=== PATIENT | female | born 1980 | race Caucasian/White ===

== ENCOUNTER 2019-01-24 22:27 | Observation (INO) ==
[2019-01-25] MEDS ORDERED: Naloxone 0.4 MG/ML INJ IVP PRN (00:20)
[2019-01-25] MEDS ORDERED: Acetaminophen 325 MG TABLET PO PRN (00:20)
[2019-01-25] MEDS: Ringers Solution, Lactated 1,000 ML IVC SCH ×2 (00:50→07:33)
[2019-01-25] MEDS: Ketorolac 30 MG/ML VIAL IVP PRN ×2 (00:50→07:33)
--- NOTE | 2019-01-25 02:09 | Internal Med History&Physical ---
Date of Encounter: 01/25/19 Time of Encounter: 02:08 Internal Medicine - H&P: HPI Chief complaint: groin pain Admitted From: Hospital to Hospital Transfer Plans for Post Hospital Care: Home History of present illness: Sherlyn Daugherty is a 38 year old woman who reports no past medical history that went to [facility] with acute onset left flank and groin pain after waking up from a nap in the afternoon. It was accompanied by nausea and chills. She denied associated dysuria, hematuria and fever. At [facility] her lab work and urine studies were grossly unremarkable however her CT scan showed a 3 mm stone within the left distal ureter at the ureterovesicular junction contributing to mild left hydronephrosis and hydroureter. She was transferred here for further care. Upon arrival here she is seen ambulating in her room without difficulty and offers no complaints. Vitals: Reviewed General: Well-appearing and well-developed woman lying comfortably in bed in no acute distress. Skin: Warm and supple. HEENT: Moist mucous membranes. No conjunctivae pallor. Neck: No lymphadenopathy. No JVD. No carotid bruits. No palpable thyroid. Chest: Normal thoracic expansion. Normal breath sounds. Clear to auscultation. Heart: Normal S1 & S2; rhythmic. No rubs or murmurs. Abdomen: Non-distended, soft and exquisite tenderness appreciated upon palpation of the left inguinal/groin area. Extremities: No clubbing, cyanosis or edema. No calf tenderness. Normal distal pulses. Neurological: Awake, alert and oriented to person, place and time. No focal deficits. Psych: Affect appropriate. Assessment/Plan 1. Left kidney stone: The location of the stone on CT correlates with the area of her pain. Although small and with the probability of passing on its own given the recent onset of symptoms, it is already causing signs of obstruction and therefore she will benefit from urology consultation. Will get routine labs and UA. 2. Tobacco use: Smoking cessation advised. Resources made available. 3. DVT prophylaxis: Antiembolic stockings ordered. Past Med Surg Social Fam HX - Past Medical History Medical history: no medical history - Social History Smoking Status: Current every day smoker Packs per day: half a pack Smokeless Tobacco Status: No Alcohol use: occasionally Drug use: marijuana - Family History Mother Age: 62 Living Status: Still Living Father Age: 60 Living Status: Still Living Hx Family Endocrine Disorder: Yes (DM) Internal Medicine - H&P: Meds Allergy/AdvReac Type Severity Reaction Status Date / Time No Known Allergies Allergy Verified 01/25/19 00:20 All Systems PM: A 10-system review of systems was performed and is negative for pertinent findings except as documented above in the HPI. - Constitutional Vitals: Temp Pulse Resp BP Pulse Ox 97.5 F L 92 16 134/76 97 01/24/19 23:56 01/24/19 23:56 01/24/19 23:56 01/24/19 23:56 01/24/19 23:56 Exam: . - Time Spent With Patient Total time spent is greater than 50% in coordination of care (as documented) at patient's floor/unit and/or counseling patient: Greater than 35 minutes
[2019-01-25 04:15] LABS: Basophils # 0.1 K/mcL (0.0-0.2); Basophils % 0.4 %; Eosinophils # 0.1 K/mcL (0.0-0.6); Eosinophils % 0.7 %; Hematocrit 37.4 % (35.3-44.9); Hemoglobin 12.7 g/dL (11.5-15.4); Immature Granulocytes % 0.4 % (0-4); Lymphocytes % 22.3 %; Mean Corpuscular Hemoglobin 30.7 pg (28.0-33.3); Mean Corpuscular Volume 90.3 fL (83.0-100.0); Mean Platelet Volume 9.5 fL (9.4-12.4); Monocytes # 0.8 K/mcL (0.0-1.3); Monocytes % 5.8 %; Neutrophils # 9.6 K/mcL (1.6-8.9); Platelet Count 225 K/mcL (140-400); Red Blood Count 4.14 M/mcL (3.82-4.97); Red Cell Distribution Width 12.9 % (11.5-14.5); Segmented Neutrophils % 70.4 %; White Blood Count 13.6 K/mcL (4.3-11.1)
[2019-01-25 04:21] LABS: Prothrombin Time 11.5 Seconds (9.4-12.1)
[2019-01-25 04:24] LABS: Activated Partial Thrombo Time 31.1 Seconds (26.0-36.0)
[2019-01-25 04:30] LABS: BUN/Creatinine Ratio 16 (6-26); Blood Urea Nitrogen 14 mg/dL (6-20); Calcium 9.4 mg/dL (8.6-10.3); Carbon Dioxide 26 mEq/L (23-29); Chloride 104 mEq/L (98-107); Glucose 82 mg/dL (70-105); Osmolality,Calculated 290 (280-300); Potassium 3.7 mEq/L (3.5-5.1); Sodium 140 mEq/L (136-145); eGFR For African Americans > 60 (> 60); eGFR For Non-African Americans > 60 (> 60)
[2019-01-25 07:17] LABS: Bilirubin,Urine Negative (Negative); Blood,Urine Large (Negative); Clarity,Urine Cloudy (Clear); Color,Urine Yellow (Yellow); Glucose,Urine (UA) Normal (Normal); Ketones,Urine Negative (Negative); Leukocyte Esterase,Urine Negative (Negative); Nitrite,Urine Positive (Negative); PH,Urine 5.5 pH Units (5.0-8.0); Protein,Urine 30 mg/dL (Neg-Trace); Specific Gravity,Urine 1.021 (1.010-1.025); Urobilinogen,Urine Normal (Normal)
[2019-01-25 07:18] LABS: Bacteria,Urine None Seen per hpf (None-Few); Hyaline Casts,Urine None Seen per lpf (None-Few); RBC,Urine TNTC per hpf (0-3); Squamous Epithelial Cell,Urine Many per lpf (None-Few)
--- NOTE | 2019-01-25 13:08 | Urology - Consult Note ---
<Talia Kam N - Last Filed: 01/25/19 13:05> Date of Encounter: 01/25/19 Time of Encounter: 10:00 - Assessment and Plan (1) Ureteral stone with hydronephrosis Current Visit: Yes Status: Acute Assessment and plan: Patient is a 38-year-old female who presents with a 3 mm left distal ureteral stone and hydronephrosis. Vital signs are currently stable and afebrile. White blood cell count is elevated to 13.6, and patient has positive nitrites in her urine. There was no urine culture collected from the emergency department. I will order a urine culture, and patient will likely be discharged on antibiotics. We discussed surgical risks and benefits, and patient verbalized understanding. Patient signed consent and she is prepared undergo a left ureters scopic stone extraction with Dr. Wells. Patient will remain nothing by mouth. Urology CN:HPI Consult date: 01/25/19 Reason for consult Urology: Hydronephrosis (ureteral stone, UTI) Requesting physician: Joon Elaine History of present illness: Patient is a 38-year-old female who presents with a 3 mm left distal ureteral stone and hydronephrosis. Patient reports a 1 day history of severe left-sided flank pain and dysuria. Patient presented to the emergency department where she underwent a CT of the abdomen and pelvis revealing a 3 mm left UVJ stone, mild hydronephrosis and nitrite positive urinalysis. Patient denies any nausea, vomiting, gross hematuria, fever or chills. Patient admits to mild dysuria, urinary urgency and frequency. Patient reports this is her first known renal stone, and she denies any known family history of renal stones. Past Med Surg Social Fam HX - Past Medical History Medical history: no medical history - Past Surgical History Surgical History: non-contributory - Social History Smoking Status: Current every day smoker Packs per day: half a pack Smokeless Tobacco Status: No Alcohol use: occasionally Drug use: marijuana - Family History Mother Age: 62 Living Status: Still Living Father Age: 60 Living Status: Still Living Hx Family Endocrine Disorder: Yes (DM) Medications and Allergies Allergy/AdvReac Type Severity Reaction Status Date / Time No Known Allergies Allergy Verified 01/25/19 00:20 Review of Systems - Constitutional no chills, no fatigue, no fever(s) - EENT Nose, mouth and throat: no dizziness, no headache(s) - Cardiovascular no chest pain, no diaphoresis, no dyspnea - Respiratory no cough, no dyspnea - Gastrointestinal abdominal pain, no nausea, no vomiting - Genitourinary Genitourinary: dysuria, flank pain, urinary frequency, urinary urgency, no difficulty urinating, no hematuria, no urinary hesitancy, no urinary incontinence - Musculoskeletal back pain, no muscle weakness - Integumentary no erythema, no rash - Neurological no confusion, no syncope - Psychiatric no anxiety, no confusion - Hematologic/Lymphatic no easy bleeding, no easy bruising - Allergic/Immunologic no throat swelling, no wheezing Exam Initial Vital Signs Temp Pulse Resp BP Pulse Ox 97.5 F L 92 16 134/76 97 01/24/19 23:56 01/24/19 23:56 01/24/19 23:56 01/24/19 23:56 01/24/19 23:56 - General physical appearance Present: well developed, no distress, no pain - Eyes Present: PERRL, normal ocular movement - ENT Present: normal nares, no hearing loss, no congestion - Neck Present: no masses, trachea midline, no lymphadenopathy - Respiratory Present: normal respiratory effort - Cardiovascular Cardiovascular exam IM: RRR - Abdomen Abdomen: Present: soft, non tender. Absent: distended - Genitourinary Present: other (No CVAT) - Integumentary Present: no rash, no abnormal pigmentation - Neurologic Present: normal coordination - Musculoskeletal Present: other (Normal posture) Urology Results - Labs 01/25/19 03:53 01/25/19 03:53 Abnormal lab results WBC 13.6 K/mcL (4.3-11.1) H 01/25/19 03:53 Neutrophils # 9.6 K/mcL (1.6-8.9) H 01/25/19 03:53 Urine Clarity Cloudy (Clear) A 01/25/19 06:45 Urine Protein 30 mg/dL (Neg-Trace) H 01/25/19 06:45 Urine Blood Large (Negative) H 01/25/19 06:45 Urine Nitrite Positive (Negative) A 01/25/19 06:45 Urine Microscopic RBC TNTC per hpf (0-3) H 01/25/19 06:45 Urine Microscopic WBC 5-15 per hpf (0-3) H 01/25/19 06:45 Ur Squamous Epith Cells Many per lpf (None-Few) H 01/25/19 06:45 Diabetes panel 01/25/19 Range/Units 03:53 Sodium 140 (136-145) mEq/L Potassium 3.7 (3.5-5.1) mEq/L Chloride 104 (98-107) mEq/L Carbon Dioxide 26 (23-29) mEq/L BUN 14 (6-20) mg/dL Creatinine 0.87 (0.60-1.20) mg/dL Glucose 82 (70-105) mg/dL Calcium 9.4 (8.6-10.3) mg/dL Calcium panel 01/25/19 Range/Units 03:53 Calcium 9.4 (8.6-10.3) mg/dL Pituitary panel 01/25/19 Range/Units 03:53 Sodium 140 (136-145) mEq/L Potassium 3.7 (3.5-5.1) mEq/L Chloride 104 (98-107) mEq/L Carbon Dioxide 26 (23-29) mEq/L BUN 14 (6-20) mg/dL Creatinine 0.87 (0.60-1.20) mg/dL Glucose 82 (70-105) mg/dL Calcium 9.4 (8.6-10.3) mg/dL Adrenal panel 01/25/19 Range/Units 03:53 Sodium 140 (136-145) mEq/L Potassium 3.7 (3.5-5.1) mEq/L Chloride 104 (98-107) mEq/L Carbon Dioxide 26 (23-29) mEq/L BUN 14 (6-20) mg/dL Creatinine 0.87 (0.60-1.20) mg/dL Glucose 82 (70-105) mg/dL Calcium 9.4 (8.6-10.3) mg/dL All other labs normal. - Imaging CT scan - abdomen: report reviewed, image reviewed CT scan - pelvis: report reviewed, image reviewed Consult Discharge Plan - Plan Referrals: Karime Carey MD [Primary Care Provider] - <Ross Wells - Last Filed: 01/25/19 14:18> Date of Encounter: 01/25/19 - Assessment and Plan (1) Hydronephrosis Current Visit: Yes Status: Acute Assessment and plan: Flank pain and hydronephrosis secondary to distal left ureteral calculus. Discussed risks benefits alternatives of urinary diversion. Plan: Urinary diversion by stenting today. Qualifiers: Hydronephrosis type: unspecified Qualified Code(s): N13.30 - Unspecified hydronephrosis (2) Ureteral calculus Current Visit: Yes Status: Acute Assessment and plan: Obstructing severely symptomatic distal left ureteral calculus requiring hospital admission. Urine questionable for infection. Patient is nontoxic. She has no significant white count. She has no fevers. Given the very small size of the very distal location the stone, believe limited ureteroscopy with stone extraction is an appropriate alternative to stent placement alone. Plan: Stone extraction at time of stent placement. (3) UTI (urinary tract infection) Current Visit: Yes Status: Acute Assessment and plan: UA suggest urinary tract infection. The white count no fevers. Potentially threatening situation given hydronephrosis and obstructing distal left ureteral calculus. Plan: Urinary diversion urgently by add on today. Qualifiers: Urinary tract infection type: site unspecified Hematuria presence: with hematuria Qualified Code(s): N39.0 - Urinary tract infection, site not specified; R31.9 - Hematuria, unspecified Exam Initial Vital Signs Temp Pulse Resp BP Pulse Ox 97.5 F L 92 16 134/76 97 01/24/19 23:56 01/24/19 23:56 01/24/19 23:56 01/24/19 23:56 01/24/19 23:56 Urology Results - Labs 01/25/19 03:53 01/25/19 03:53 Abnormal lab results WBC 13.6 K/mcL (4.3-11.1) H 01/25/19 03:53 Neutrophils # 9.6 K/mcL (1.6-8.9) H 01/25/19 03:53 Urine Clarity Cloudy (Clear) A 01/25/19 06:45 Urine Protein 30 mg/dL (Neg-Trace) H 01/25/19 06:45 Urine Blood Large (Negative) H 01/25/19 06:45 Urine Nitrite Positive (Negative) A 01/25/19 06:45 Urine Microscopic RBC TNTC per hpf (0-3) H 01/25/19 06:45 Urine Microscopic WBC 5-15 per hpf (0-3) H 01/25/19 06:45 Ur Squamous Epith Cells Many per lpf (None-Few) H 01/25/19 06:45 Diabetes panel 01/25/19 Range/Units 03:53 Sodium 140 (136-145) mEq/L Potassium 3.7 (3.5-5.1) mEq/L Chloride 104 (98-107) mEq/L Carbon Dioxide 26 (23-29) mEq/L BUN 14 (6-20) mg/dL Creatinine 0.87 (0.60-1.20) mg/dL Glucose 82 (70-105) mg/dL Calcium 9.4 (8.6-10.3) mg/dL Calcium panel 01/25/19 Range/Units 03:53 Calcium 9.4 (8.6-10.3) mg/dL Pituitary panel 01/25/19 Range/Units 03:53 Sodium 140 (136-145) mEq/L Potassium 3.7 (3.5-5.1) mEq/L Chloride 104 (98-107) mEq/L Carbon Dioxide 26 (23-29) mEq/L BUN 14 (6-20) mg/dL Creatinine 0.87 (0.60-1.20) mg/dL Glucose 82 (70-105) mg/dL Calcium 9.4 (8.6-10.3) mg/dL Adrenal panel 01/25/19 Range/Units 03:53 Sodium 140 (136-145) mEq/L Potassium 3.7 (3.5-5.1) mEq/L Chloride 104 (98-107) mEq/L Carbon Dioxide 26 (23-29) mEq/L BUN 14 (6-20) mg/dL Creatinine 0.87 (0.60-1.20) mg/dL Glucose 82 (70-105) mg/dL Calcium 9.4 (8.6-10.3) mg/dL All other labs normal.
[2019-01-25] MEDS ORDERED: *HR* Propofol 200 MG/20 ML VIAL IVP ONE ×2 (14:04→15:06)
[2019-01-25] MEDS ORDERED: *HR* FentaNYL (PF) 100 MCG/2 ML VIAL ONE ×2 (14:04→15:06)
[2019-01-25] MEDS ORDERED: *HR* Midazolam HCl 2 MG/2 ML VIAL ONE ×2 (14:04→15:06)
[2019-01-25] MEDS ORDERED: Ondansetron 4 MG/2 ML VIAL ONE (14:09)
[2019-01-25] MEDS ORDERED: Lidocaine -MPF 2% 2 ML VIAL ONE (14:09)
[2019-01-25] MEDS ORDERED: CeFAZolin Syr 2,000MG/20 ML 2,000 MG/20 ML SYRINGE IVPB ONE (14:14)
--- NOTE | 2019-01-25 14:27 | Anesthesia Evaluation PreOp ---
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: Denies Any Significant HX Other Medical History: Renal (kidney stone) Anesthesia History: No Prior Anesthetic Complications, Past Anesthesia (BTL, Uterine bx) : No Test: Negative Alcohol Use: occasionally Drug use: marijuana Medications and Allergies Allergy/AdvReac Type Severity Reaction Status Date / Time No Known Allergies Allergy Verified 01/25/19 00:20 - Meds/Allergy Pre-op Review Medications Reviewed: Yes Allergies Reviewed: Yes Beta Blockers on Current Med List: No Anesthesia Results - Labs 01/25/19 03:53 01/25/19 03:53 Laboratory Tests 01/25/19 01/25/19 01/25/19 03:53 03:53 06:45 INR 1.0 Est GFR (Non-Af Amer) > 60 Urine Test Negative Anesthesia Exam O2 Sat Height 1.75 m Weight 75 kg Weight 75.774 kg O2 Sat by Pulse Oximetry 98 O2 Sat by Pulse Oximetry 98 O2 Sat by Pulse Oximetry 100 O2 Sat by Pulse Oximetry 97 Vital Signs Temp Pulse Resp BP Pulse Ox 97.5 F L 92 16 134/76 97 01/24/19 23:56 01/24/19 23:56 01/24/19 23:56 01/24/19 23:56 01/24/19 23:56 - HEENT Pupil (Motor): Pupils equal, EOMI Mallampati: II Teeth: Normal Oral Opening: Greater than 3 - MANUFACTURING ENGINEERING PROFESSOR LOC: Oriented MANUFACTURING ENGINEERING PROFESSOR Motor: Normal RUE, Normal LUE, Normal RLE, Normal LLE, Normal Face MANUFACTURING ENGINEERING PROFESSOR Sensory: Normal: RUE, LUE, RLE, LLE, Face - Cardiac Rhythm: Regular Murmur: None - Pulmonary Breath Sounds: bilateral Clear Respiratory Effort: Symmetrical Anesthesia Assess/Plan ASA Score: 2 Level of consciousness: Cooperative, Oriented, Tranquil Anesthetic Plan: General Monitoring Plan: Standard Monitors Recovery Plan: PACU Anes Supervising Prov Stmt: Pt seen/evaluated, R&B Discussed, questions answered and consent obtained. Carole Woodall MD
[2019-01-25] MEDS ORDERED: Acetaminophen IV 1,000 MG/100 ML INFUS..BTL ONE (14:32)
[2019-01-25] MEDS ORDERED: Isovue-300 50 ML VIAL ONE (14:33)
[2019-01-25] MEDS ORDERED: Famotidine 20 MG/2 ML VIAL ONE (14:34)
[2019-01-25] MEDS ORDERED: Famotidine 20 MG/2 ML VIAL IVP ONE (14:35)
[2019-01-25] MEDS ORDERED: Acetaminophen IV 1,000 MG/100 ML INFUS..BTL IVPB ONE (14:35)
[2019-01-25] MEDS ORDERED: Dexamethasone 4 MG/ML VIAL ONE (14:47)
[2019-01-25] MEDS ORDERED: Ketorolac 30 MG/ML VIAL ONE (15:01)
--- NOTE | 2019-01-25 15:11 | Operative Note ---
Date of procedure: 01/25/19 Pre-op diagnosis: Left hydronephrosis Post-op diagnosis: same Procedure: Cystoscopy, left retrograde ureteral pyelography, left ureteroscopy, left double-J stent placement, intraoperative interpretation of radial graphic images in real time by surgeon Implants: 6 x 24 left double-J stent Complications: None Anesthesia: GETA Surgeon: Ross Wells Was there an state tested nursing assistant present: No Estimated blood loss (cc): 0 Specimen: None Condition: stable Disposition: PACU Procedure in Detail: The patient brought to the operating theater placed on table supine position. The patient was identified by name date of and administered a general anesthetic. The patient was placed in dorsal lithotomy then prepped and draped in the normal sterile fashion. An endoscope was inserted urethral meatus and advanced with the bladder under direct visualization. There were no mucosal outpouchings of bladder. Through the scope a left retrograde ureteral pyelogram was performed. Intraoperative interpretation of radial pyelographic images in real time by surgeon revealed no abnormalities of the left ureter or kidney. No filling defects are consultations were noted. Based on this finding diagnostic ureter oscopy was indicated given history of left ureteral calculus on CT. Using freehand technique the left ureter scope was removed into the left distal ureter and all the way to the left kidney. No stone stricture or tumor was encountered. There was some inflammation and erythema in the distal ureter consistent with the previous stone position. Findings suggest the patient passed stone spontaneously. Given the inflammation in the distal left ureter and the patient's ongoing pain situated made to place a stent. Glidewire was advanced. Over the Glidewire a 6 x 24 double-J stent was advanced. All instruments were removed. This ended the operative procedure.
--- NOTE | 2019-01-25 15:40 | Anesthesia Evaluation Post Op ---
Date of Encounter: 01/25/19 Time of Encounter: 15:39 - Vital Signs Vital Signs: Vital Signs Temperature 97.5 F L 01/24/19 23:56 Pulse Rate 92 01/24/19 23:56 Respiratory Rate 16 01/24/19 23:56 Blood Pressure 134/76 01/24/19 23:56 O2 Sat by Pulse Oximetry 97 01/24/19 23:56 Temperature 98.2 F 01/25/19 15:13 Pulse Rate 70 01/25/19 15:33 Respiratory Rate 20 01/25/19 15:33 Blood Pressure 111/78 01/25/19 15:33 O2 Sat by Pulse Oximetry 100 01/25/19 15:33 - Lungs Lungs: Clear Ascult./Percussion - Airway Airway: Non-obstructed - Cardiovascular Regular Rate - Mental Status Mental Status: Alert & Oriented, Answers Appropriately - Pain Pain Scale: 0 Pain Scale used: Numeric (1 - 10) - Nausea Vomiting Nausea Vomiting: Not Present - Hydration Hydration: Tolerates oral liquids - Discharge PostOp Status: Transfer Patient to floor
--- NOTE | 2019-01-25 15:54 | Discharge Summary ---
- NOTES TO OUTPATIENT PROVIDER Notes to Outpatient Provider: f/u with PCP in one week. f/u with Urologist in one week. Orders not resulted at time of discharge: Pending orders 01/25/19 13:13 UC [Culture,Urine] [] Routine Date of Encounter: 01/25/19 Time of Encounter: 15:49 - Discharge Diagnosis (1) Hydronephrosis Priority: Primary Status: Acute Qualifiers: Hydronephrosis type: unspecified Qualified Code(s): N13.30 - Unspecified hydronephrosis (2) Ureteral stone with hydronephrosis Priority: Primary Status: Acute (3) UTI (urinary tract infection) Priority: Primary Status: Acute Qualifiers: Urinary tract infection type: site unspecified Hematuria presence: with hematuria Qualified Code(s): N39.0 - Urinary tract infection, site not specified; R31.9 - Hematuria, unspecified Hospital course: Ms. Daugherty is a 38 year old F with no significant past medical history pt presented to [facility] with acute onset left flank and groin pain after waking up from a nap in the afternoon. It was accompanied by nausea and chills. She denied associated dysuria, hematuria and fever. At [facility] her lab work and urine studies were grossly unremarkable however her CT scan showed a 3 mm stone within the left distal ureter at the ureterovesicular junction contributing to mild left hydronephrosis and hydroureter. She was admitted in the hospital and started symptomatic care. She was given IV Ancef x 1 dose. Her UA was abnormal with positive nitrities. She was evaluated by Urology who did Cystoscopy, left retrograde ureteral pyelography, left ureteroscopy and left double-J stent placement. Pt stated she is feeling much better now. So will d/c her home in stable condition today with PO abx Keflex and PO pain meds. - Time Spent with Patient Total time spent providing and/or coordinating discharge services: - Discharge Medications Prescriptions: New Cephalexin [Keflex] 500 mg PO TID #21 capsule Oxycodone HCl/Acetaminophen [Percocet 5-325 mg Tablet] 1 each PO TID PRN 5 Days #15 tablet PRN Reason: Pain Home Medications: Cephalexin [Keflex] 500 mg PO TID #21 capsule 01/25/19 [Rx] Oxycodone HCl/Acetaminophen [Percocet 5-325 mg Tablet] 1 each PO TID PRN 5 Days #15 tablet 01/25/19 [Rx] Allergies/Adverse Reactions: Allergy/AdvReac Type Severity Reaction Status Date / Time No Known Allergies Allergy Verified 01/25/19 00:20 Date of admission: 01/24/19 23:34 Primary care physician: Karime Carey MD Consults: 01/25/19 00:18 Consult to Urology [CONS] Routine Consulting Provider: U[facility] [place] Reason for Consult: Obstructive 3mm stone in the left UVJ causing mild hydronephrosis and hydroureter Call Completed: Yes - Constitutional Vitals: Temp Pulse Resp BP Pulse Ox 98.5 F 67 20 115/83 100 01/25/19 15:43 01/25/19 15:43 01/25/19 15:43 01/25/19 15:43 01/25/19 15:43 General appearance: Present: cooperative, A&O X 3, no acute distress, answers questions appropriately Exam: Gen: Alert, awake, Oriented to time,place and person Chest: Diminished breath sounds B/L, No wheezing, No crackles, No rales Heart: S1S2+ RRR No murmurs Abd: Soft, NT, BS +, No organomegaly Ext: No edema, pulses are palpable, No calf tenderness Neuro : No acute focal neuro deficits noticed Skin: No rash. - Patient Status Disposition: Home, Self-Care Condition: Good Overall status at discharge: patient is back to baseline - Discharge Instructions Follow Up With: Karime Carey MD [Primary Care Provider] - 01/30/19 10:00 am Ross Wells [Partnered Physician] - - Diet and Activity Activity: increase activity as tolerated Diet: low salt diet
[2019-01-25 17:59] VITALS: BP 111/76
== END 2019-01-25 18:12 | disposition home or self-care (01) ==
LOC: 3BNU → SUATTDRO 23:34
PROVIDERS: ADMIT Internal Medicine; ATTEND Family Medicine